=== PATIENT | male | born 2000 | race Caucasian/White ===

== ENCOUNTER 2023-02-02 20:16 | Emergency (ER) | payer OTHER ==
[2023-02-02 21:12] LABS: #Monocytes 0.4 thou/uL (0.11-0.59); #Neutrophils 2.9 thou/uL (1.40-6.50); %Basophils 0.8 % (0.0-1.0); %Eosinophils 0.2 % (0.0-10.0); %Lymphocytes 28.4 % (21.0-51.0); %Monocytes 8.4 % (0.0-10.0); %Neutrophils 61.8 % (42.0-75.0); Hemoglobin 12.9 g/dL (14.0-18.0); Mean Corpuscular HGB CONC 34.1 g/dL (32.0-36.0); Mean Corpuscular Volume 87.9 fl (78.0-98.0); Mean Platelet Volume 10.2 fL (7.4-10.4); Platelet Count 144 10x3/uL (130-400); White Blood Cell (WBC) Count 4.8 10x3/uL (4.8-10.8)
[2023-02-02 21:15] LABS: Manual Diff?? YES
[2023-02-02 21:32] LABS: ALT (SGPT) 30 U/L (8-55); AST (SGOT) 38 U/L (5-34); Albumin 4.1 g/dL (3.5-5.0); Alkaline Phosphatase 65 U/L (40-110); Anion Gap 14 mmol/L (10-20); BUN (Urea Nitrogen) 11 mg/dL (8.9-20.6); Bilirubin, Total 1.2 mg/dL (0.2-1.2); CK (CPK) 158 U/L (30-200); Calc. Creatinine Clearance 0 mL/min (70-130); Calcium 9.1 mg/dL (7.8-10.44); Carbon Dioxide 25 mmol/L (22-29); Chloride 101 mmol/L (98-107); Estimated GFR 126; Globulin 3.5 g/dL (2.4-3.5); Glucose 108 mg/dL (70-105); Lipase 20 U/L (8-78); Potassium 3.6 mmol/L (3.5-5.1); Protein, Total 7.6 g/dL (6.0-8.3); Sodium 136 mmol/L (136-145)
[2023-02-02 21:41] LABS: Band 21 % (5-11); Lymphocytes 22 % (21-51); Monocytes 6 % (0-10); Neutrophil 44 % (42-75); Platelet Adequacy Comment Platelets Normal; Polychromasia SLIGHT = 2-3 cells HPF (0-2); Reactive Lymphocytes 3 % (0-10); Total Cell Count 101
[2023-02-02 22:48] LABS: Bacteria/HPF None Seen HPF (None Seen); Bilirubin Negative (Negative); Blood, Urine Negative (Negative); CAUTI Indications for Culture Fever or rigors; Clarity Clear (Clear); Glucose, Urine (Dipstick) Normal (Negative); Ketone, Urine Negative (Negative); Leukocyte Negative Leu/uL (Negative); Nitrite Negative (Negative); Protein, Urine (Dipstick) 20 mg/dL (Neg-Trace); RBC/HPF 0-3 HPF (0-3); Specific Gravity, Urine 1.026 (1.002-1.036); Squamous Epithelial None Seen HPF (0-3); WBC/HPF 0-3 HPF (0-3)
[2023-02-02 22:52] LABS: Urine Culture Reflex No No
== END 2023-02-02 22:15 | disposition home or self-care (01) ==
LOC: ERS 20:16
DX: B34.9 Viral infection, unspecified (principal)
CPT/HCPCS: 36415; 80053; 81001; 82550; 83605; 83690; 85025; 87040; 87086; 99283

== ENCOUNTER 2024-05-08 19:17 | Emergency (ER) | payer OTHER ==
[2024-05-08] MEDS ORDERED: Ibuprofen 800 MG TAB ONE (20:54)
[2024-05-08] MEDS ORDERED: Bacitracin 1 PK ONE (20:59)
== END 2024-05-08 22:24 | disposition home or self-care (01) ==
LOC: ERS 19:17
DX: S82.422A Displaced transverse fracture of shaft of left fibula, initial encounter for closed fracture (principal); S92.355A Nondisplaced fracture of fifth metatarsal bone, left foot, initial encounter for closed fracture; S80.211A Abrasion, right knee, initial encounter; S80.212A Abrasion, left knee, initial encounter; V18.0XXA Pedal cycle driver injured in noncollision transport accident in nontraffic accident, initial encounter
CPT/HCPCS: 99283